=== PATIENT | male | born 1985 | race Caucasian/White ===

== ENCOUNTER → 2017-02-10 | Outpatient (CLI) | payer BC ==
[~2017-02-10] MED LIST: HYDR-4079 PO; IBUP-1451 PO; PROM25TA PO
[2017-02-11 06:55] LABS: ESTIMATED AVERAGE GLUCOSE 214 mg/dl; HA1C FLAG Normal (Normal)
== END | disposition home or self-care (01) ==
LOC: C.LAB1850 16:09
PROVIDERS: ATTEND Nurse Practitioner Family
DX: E11.65 Type 2 diabetes mellitus with hyperglycemia (principal)

== ENCOUNTER → 2017-12-19 | Outpatient (CLI) | payer BC ==
[2017-12-19 13:10] LABS: BLOOD UREA NITROGEN 15 mg/dl (7-18); CARBON DIOXIDE 30 mmol/L (21-32); CREATININE 0.94 mg/dl (0.60-1.40); GLUCOSE 188 mg/dl (70-99); POTASSIUM 4.4 mmol/L (3.5-5.1); SODIUM 136 mmol/L (136-145)
[2017-12-19 13:22] LABS: HEMOGLOBIN A1C 9.8 % (4.5-5.6)
[2017-12-19 13:23] LABS: CHOLESTEROL 137 mg/dl (0-200); LDL CHOLESTEROL CALCULATED 57 mg/dl
[2017-12-19 14:41] LABS: CREATININE RANDOM URINE 22.7 mg/dl
== END | disposition home or self-care (01) ==
LOC: C.LABBFT 07:35
PROVIDERS: ATTEND Nurse Practitioner Family
DX: E03.9 Hypothyroidism, unspecified (principal); E11.65 Type 2 diabetes mellitus with hyperglycemia